=== PATIENT | female | born 1950 | race Hispanic/Latino ===

== ENCOUNTER 2017-10-10 09:37 | Outpatient (CLI) | payer MEDICARE ==
--- NOTE | 2017-10-11 11:02 | Mammography Report ---
BILATERAL DIGITAL SCREENING MAMMOGRAM with CAD: 10/10/17 09:37:00 CLINICAL: Routine screening. COMPARISON:None. Her last mammogram was over ten years ago. FINDINGS: The breasts are almost entirely fatty. No mass, architectural distortion or suspicious calcifications. IMPRESSION: No mammographic evidence of malignancy. BI-RADS CATEGORY: 1 - - Negative RECOMMENDATION: Routine mammographic screening in one year. COMMENT: Patient follow-up letters are generated by our [employer] application.
== END 2017-10-10 09:38 | disposition home or self-care (01) ==
LOC: SPVWC 09:37
PROVIDERS: ATTEND Nurse Practitioner
DX: Z12.31 Encounter for screening mammogram for malignant neoplasm of breast (principal)
CPT/HCPCS: 77067

== ENCOUNTER 2019-10-03 08:56 | Outpatient (CLI) | payer MEDICARE ==
--- NOTE | 2019-10-03 09:49 | XRay Report ---
HISTORY:LEFT HIP PAIN M25.552 COMPARISON: None. TECHNIQUE: AP lateral and obliques views were obtained FINDINGS: Bones: No fracture or dislocation. Joint spaces: Bilateral total hip arthroplasties are present. Soft tissues: No significant abnormality. Additional findings: Bones are osteopenic IMPRESSION: 1. No significant abnormality. Signer Name: Joseph Barth MD Signed: 10/03/2019 9:44 AM Workstation Name: [id number]
== END 2019-10-03 08:57 | disposition home or self-care (01) ==
LOC: SPVIMAG 08:56
PROVIDERS: ATTEND Internal Medicine
DX: M25.552 Pain in left hip (principal); Z96.643 Presence of artificial hip joint, bilateral

== ENCOUNTER 2019-11-08 08:29 | Outpatient (CLI) | payer MEDICARE ==
--- NOTE | 2019-11-09 08:56 | Mammography Report ---
DIGITAL SCREENING MAMMOGRAM WITH CAD, 11/08/2019 INDICATION: Routine screening mammography. TECHNIQUE: Digital bilateral 2D mammography was obtained in the craniocaudal and mediolateral obliq ue projections. This examination was interpreted with the benefit of Computer-Aided Detection analysi s. COMPARISON: 11/06/2018, 10/10/2017 FINDINGS: Breast Density: The breasts are almost entirely fatty. There is no evidence of dominant mass, suspicious calcifications or architectural distortion in eithe r breast. IMPRESSION: Follow up recommendation: Routine yearly BI-RADS Category 1: Negative. A "normal" or negative report should not discourage follow up or biopsy of a clinically significant f inding. A written summary of these findings will be mailed to the patient. The patient will be entered into a mammography reporting system which will generate a reminder letter for the patient's next appointmen t at the appropriate interval. The [employer] recommends yearly mammograms starting at age 40 and continuing as l fern as a woman is in good health. Breast MRI is recommended for women with an approximate 20-25% or greater lifetime risk of breast cancer, including women with a strong family history of breast or ova sen cancer or who have been treated for Hodgkin's disease. Signer Name: Sukhdev Black MD Signed: 11/09/2019 8:52 AM Workstation Name: [id number]
== END 2019-11-08 08:30 | disposition home or self-care (01) ==
LOC: SPVWC 08:29
PROVIDERS: ATTEND Internal Medicine
DX: Z12.31 Encounter for screening mammogram for malignant neoplasm of breast (principal); N64.89 Other specified disorders of breast
CPT/HCPCS: 77067

== ENCOUNTER 2020-11-10 10:02 | Outpatient (CLI) | payer MEDICARE ==
--- NOTE | 2020-11-10 11:04 | Mammography Report ---
DIGITAL SCREENING MAMMOGRAM WITH CAD, 11/10/2020 CLINICAL INFORMATION / INDICATION: Routine screening mammography. SCREENING MAMMOGRAM TECHNIQUE: Digital bilateral 2D mammography was obtained in the craniocaudal and mediolateral obliqu e projections. This examination was interpreted with the benefit of Computer-Aided Detection analysis . COMPARISON: 11/08/19, 11/06/18 FINDINGS: Breast Density: The breasts are almost entirely fatty. No dominant mass, suspicious calcifications, or architectural distortion in either breast. IMPRESSION: No mammographic evidence of malignancy. Follow up recommendation: Routine yearly BI-RADS Category 1: Negative. A "normal" or negative report should not discourage follow up or biopsy of a clinically significant f inding. A written summary of these findings will be mailed to the patient. The patient will be entered into a mammography reporting system which will generate a reminder letter for the patient's next appointmen t at the appropriate interval. The [employer] recommends yearly mammograms starting at age 40 and continuing as l fern as a woman is in good health. Breast MRI is recommended for women with an approximate 20-25% or greater lifetime risk of breast cancer, including women with a strong family history of breast or ova sen cancer or who have been treated for Hodgkin's disease. Signer Name: Jacob Mayberry MD Signed: 11/10/2020 11:00 AM Workstation Name: [id number]
== END 2020-11-10 10:03 | disposition home or self-care (01) ==
LOC: SPVWC 10:02
PROVIDERS: ATTEND Internal Medicine
DX: Z12.31 Encounter for screening mammogram for malignant neoplasm of breast (principal)
CPT/HCPCS: 77067